=== PATIENT | female | born 1985 | race Caucasian/White ===

== ENCOUNTER 2018-02-28 07:52 | Emergency (ER) | payer SELFPAY ==
[2018-02-28] MEDS ORDERED: Ibuprofen 800 MG TAB ONE (08:38)
== END 2018-02-28 08:44 | disposition home or self-care (01) ==
LOC: ERS 07:52
DX: K04.7 Periapical abscess without sinus (principal); F32.9 Major depressive disorder, single episode, unspecified
CPT/HCPCS: 99282

== ENCOUNTER 2018-11-24 18:40 | Emergency (ER) | payer OTHER, SELFPAY ==
[2018-11-24 19:04] LABS: #Eosinphils 0.1 thou/uL (0.0-0.7); #Lymphocytes 1.8 thou/uL (1.20-3.40); #Monocytes 1.1 thou/uL (0.11-0.59); #Neutrophils 8.6 thou/uL (1.40-6.50); %Basophils 0.3 % (0.0-1.0); %Eosinophils 0.9 % (0.0-10.0); %Lymphocytes 15.7 % (21.0-51.0); %Monocytes 9.3 % (0.0-10.0); %Neutrophils 73.9 % (42.0-75.0); Mean Corpuscular HGB CONC 34.7 g/dL (32.0-36.0); Mean Corpuscular Hemoglobin 32.2 pg (27.0-31.0); Mean Corpuscular Volume 92.8 fL (78.0-98.0); Mean Platelet Volume 8.4 fL (7.4-10.4); Platelet Count 251 thou/uL (130-400); Red Blood Cell (RBC) Count 4.03 mill/uL (4.20-5.40); White Blood Cell (WBC) Count 11.6 thou/uL (4.8-10.8)
[2018-11-24] MEDS ORDERED: Acetaminophen 500 MG TAB ONE (19:07)
[2018-11-24] MEDS ORDERED: Ondansetron PF 4 MG/2 ML Vial ONE (19:07)
[2018-11-24] MEDS ORDERED: cefTRIAXone\\ROCEPHIN 2 GM VIAL ONE (19:07)
[2018-11-24 19:23] LABS: BHCG - Serum Negative (NEGATIVE); Pregs Control Background? CLEAR/WHITE (CLR/WHITE); Pregs Control Bar Appear? YES (CONTROL BAR)
[2018-11-24 19:26] LABS: ALT (SGPT) 77 U/L (8-55); AST (SGOT) 65 U/L (5-34); Albumin 4.2 g/dL (3.5-5.0); Alkaline Phosphatase 117 U/L (40-150); Anion Gap 14 mmol/L (10-20); BUN (Urea Nitrogen) 8 mg/dL (7.0-18.7); Bilirubin, Total 0.4 mg/dL (0.2-1.2); Calc. Creatinine Clearance 0 mL/min (70-130); Calcium 9.5 mg/dL (7.8-10.44); Carbon Dioxide 24 mmol/L (22-29); Chloride 101 mmol/L (98-107); Estimated GFR-MDRD 70; Globulin 2.6 g/dL (2.4-3.5); Glucose 98 mg/dL (70-105); Potassium 3.7 mmol/L (3.5-5.1); Protein, Total 6.8 g/dL (6.0-8.3); Sodium 135 mmol/L (136-145)
--- NOTE | 2018-11-24 19:35 | RAD ---
PORTABLE CHEST 1 VIEW: Date: 11/24/18 Time: 1918 hours HISTORY: Sepsis alert. FINDINGS: The heart size is normal. The lungs are well expanded without focal areas of consolidation, pneumotho rax, or pleural effusions. IMPRESSION: No radiographic evidence of acute cardiopulmonary process. POS: [facility]
[2018-11-24 20:25] LABS: Bilirubin Negative (Negative); Blood, Urine 1+ (Negative); Clarity Turbid (Clear); Glucose, Urine (Dipstick) Normal (Negative); Leukocyte 500 Leu/uL (Negative); Nitrite 1+ (Negative); Protein, Urine (Dipstick) 30 mg/dL (Neg-Trace); Squamous Epithelial 0-3 HPF (0-3); Urobilinogen Normal mg/dL (Less than 2); WBC/HPF Greater than 50 HPF (0-3)
[2018-11-24 20:27] LABS: Bacteria/HPF 2+ HPF (None Seen)
== END 2018-11-24 21:50 | disposition home or self-care (01) ==
LOC: ERS 18:40
DX: N39.0 Urinary tract infection, site not specified (principal); E86.0 Dehydration; F32.9 Major depressive disorder, single episode, unspecified; F17.210 Nicotine dependence, cigarettes, uncomplicated; Z79.899 Other long term (current) drug therapy
CPT/HCPCS: 36415; 51701; 71045; 80053; 81003; 81015; 83605; 84703; 85025; 87040; 87086; 87149; 96361; 96365; 96375; A4353; J0696; J2405

== ENCOUNTER 2020-05-16 04:02 | Emergency (ER) | payer OTHER ==
--- NOTE | 2020-05-17 00:16 | PDOC.HHP ---
Hospitalist HPI History of Present Illness: ADMISSION DATE: 05/16/2020 TIME OF ASSESSMENT: 2300 PRIMARY CARE PHYSICIAN: None CHIEF COMPLAINT: Right lower extremity swelling HPI: This is a 34-year-old woman who presents to the emergency department with complaints of increasing swelling and redness to the right lower extremity. She was diagnosed with right leg cellulitis when she was seen at the [facility] this morning. Woke up with pain due to the swelling early hours this morning at approximately 2 AM. She thought she may have had an insect bite on the right soto and does not recall having a fall or injury to the right leg. She states it has been progressively worsening for the last several days. Denies any fevers, chills, or sweats at home. She has not had any infection like this in the past When she was seen at the [facility] she was given a dose of vancomycin and cefepime. She was advised admission to the hospital for continued antibiotics but the patient refused admission. She received 1 L of normal saline. She was discharged on p.o. antibiotics (clindamycin). She opted to come back because a swelling and pain has become worse as well as the redness which is now extending to her right knee. ROS: The patient reports having intermittent chest pain for the last couple days. She states she feels it in the center of her chest and it radiates to the left shoulder lasting a few minutes at a time. Denies any exacerbation with deep inspiration. Reports having a productive cough but has not paid attention to the color of the sputum. Has not noted any hemoptysis. Denies feeling short of breath. No nausea vomiting or abdominal pain. All other review systems are negative. ED COURSE: Labs done this evening showed a white cell count of 12.5, neutrophils 71.8%, sodium 138, potassium 3.9, BUN 14, creatinine 0.79, GFR 83. Glucose 99. Lactic acid was not done. LFTs normal. test was negative. Allergies/Adverse Reactions: Allergy/AdvReac Type Severity Reaction Status Date / Time No Known Drug Allergies Allergy Unverified 05/16/20 23:06 Past History: PAST MEDICAL HISTORY: 1. History of kidney infection 2. Depression 3. Obesity 4. Bipolar disorder PAST SURGICAL HISTORY: 1. x1 2. Tubal ligation SOCIAL HISTORY: Patient reports smoking 5 cigarettes a day. Denies any alcohol consumption or drug use. States that she has been around someone recently who has use drugs but that she has not. She lives with her and child. FAMILY HISTORY: Noncontributory Hospitalist Exam General Appearance: NAD General - other findings: VS: Temp 98, HR 70, BP 100/54, RR 15, O2 sat 99% on room air. Eye: anicteric sclera Eye - other findings: pin point pupils ENT: normocephalic atraumatic, no oropharyngeal lesions, moist mucosa Neck: supple, no lymphadenopathy Heart: RRR, normal peripheral pulses Respiratory: CTAB, no wheezes, no rales, no ronchi, normal chest expansion Gastrointestinal: soft, non-tender, non-distended, normal bowel sounds Extremities: no cyanosis, no clubbing Extremities - other findings: right lower leg swelling with erythema,anteriorly and right knee erythema Skin: no rashes Skin - other findings: wound to anterior leg, no bleeding/drainage Neurological: cranial nerve grossly intact, normal sensation to touch Musculoskeletal: normal tone, normal strength, no muscle wasting Psychiatric: normal affect, normal behavior, A&O x 3 Hospitalist H&P A/P (1) Cellulitis of right leg Code(s): L03.115 - CELLULITIS OF RIGHT LOWER LIMB Status: Acute (2) Hypotension Status: Acute (3) Chest pain Code(s): R07.9 - CHEST PAIN, UNSPECIFIED Status: Acute (4) Obesity Code(s): E66.9 - OBESITY, UNSPECIFIED Status: Acute Plan: Right leg cellulitis Continue IV antibiotics Xray obtained to rule out osteomyelitis Venous doppler of RLE ordered Wound care consulted Hypotension IV fluids started Monitor BP Chest pain Cardiac monitoring Trend troponins EKG ordered UDS ordered Cough Baseline CXR ordered Admission screening for COVID GI Prophylaxis with Famotidine DVT Prophylaxis with Lovenox CODE STATUS FULL Case discussed with attending who agrees with plan as above.
== END 2020-05-16 04:41 | disposition left against medical advice (07) ==
LOC: ERS 04:02
DX: L03.115 Cellulitis of right lower limb (principal); L03.116 Cellulitis of left lower limb; F17.210 Nicotine dependence, cigarettes, uncomplicated

== ENCOUNTER 2020-05-16 18:40 | Inpatient (IN) | payer OTHER, SELFPAY ==
[2020-05-16 20:13] LABS: #Basophils 0.1 thou/uL (0.0-0.2); #Eosinphils 0.2 thou/uL (0.0-0.7); #Lymphocytes 2.3 thou/uL (1.20-3.40); %Basophils 0.6 % (0.0-1.0); %Eosinophils 1.8 % (0.0-10.0); %Lymphocytes 18.2 % (21.0-51.0); %Monocytes 7.6 % (0.0-10.0); %Neutrophils 71.8 % (42.0-75.0); Hemoglobin 13.1 g/dL (12.0-16.0); Mean Corpuscular HGB CONC 33.4 g/dL (32.0-36.0); Mean Corpuscular Hemoglobin 30.5 pg (27.0-31.0); Mean Corpuscular Volume 91.3 fL (78.0-98.0); Mean Platelet Volume 8.2 fL (7.4-10.4); Platelet Count 384 thou/uL (130-400); RBC Distribution Width 13.2 % (11.5-14.5); Red Blood Cell (RBC) Count 4.31 mill/uL (4.20-5.40); White Blood Cell (WBC) Count 12.5 thou/uL (4.8-10.8)
[2020-05-16 20:45] LABS: ALT (SGPT) 16 U/L (8-55); AST (SGOT) 12 U/L (5-34); Albumin 3.9 g/dL (3.5-5.0); Alkaline Phosphatase 101 U/L (40-110); Anion Gap 12 mmol/L (10-20); BUN (Urea Nitrogen) 14 mg/dL (7.0-18.7); Bilirubin, Total 0.2 mg/dL (0.2-1.2); Calc. Creatinine Clearance 0 mL/min (70-130); Carbon Dioxide 27 mmol/L (22-29); Chloride 103 mmol/L (98-107); Globulin 3.3 g/dL (2.4-3.5); Glucose 99 mg/dL (70-105); Potassium 3.9 mmol/L (3.5-5.1); Protein, Total 7.2 g/dL (6.0-8.3); Sodium 138 mmol/L (136-145)
[2020-05-16 20:52] LABS: BHCG - Serum Negative (NEGATIVE); Pregs Control Background? CLEAR/WHITE (CLR/WHITE); Pregs Control Bar Appear? YES (CONTROL BAR)
[2020-05-16] MEDS ORDERED: Cefepime 2 GM VIAL ONE (21:58)
[2020-05-16] MEDS ORDERED: VANCOMYCIN 2 GRAM/400 ML BAG 2 GM in Premix Bag 1 BAG IVPB SCH (23:15)
[2020-05-17 00:33] LABS: Lactic Acid 1.5 mmol/L (0.5-2.2)
[2020-05-17 00:35] LABS: CRP (Inflammatory) 6.15 mg/dL (= or < 0.5); Magnesium 2.1 mg/dL (1.6-2.6)
[2020-05-17] MEDS ORDERED: Acetaminophen 325 MG TAB PO PRN (00:49)
[2020-05-17] MEDS ORDERED: Acetaminophen 650 MG Suppository PR PRN (00:49)
[2020-05-17] MEDS ORDERED: Enoxaparin Sodium 40 MG/0.4 ML SYRINGE SC SCH (01:00)
[2020-05-17] MEDS: Sodium Chloride 0.9% 1,000 ML IV SCH ×4 (03:12→20:43)
[2020-05-17] MEDS ORDERED: Enoxaparin Sodium 40 MG/0.4 ML SYRINGE ONE (03:14)
[2020-05-17 03:24] LABS: #Eosinphils 0.3 thou/uL (0.0-0.7); #Lymphocytes 2.7 thou/uL (1.20-3.40); #Monocytes 0.9 thou/uL (0.11-0.59); %Basophils 0.1 % (0.0-1.0); %Eosinophils 2.7 % (0.0-10.0); %Lymphocytes 22.5 % (21.0-51.0); %Monocytes 7.4 % (0.0-10.0); %Neutrophils 67.3 % (42.0-75.0); Hemoglobin 12.5 g/dL (12.0-16.0); Mean Corpuscular HGB CONC 33.4 g/dL (32.0-36.0); Mean Corpuscular Hemoglobin 30.7 pg (27.0-31.0); Mean Corpuscular Volume 92.1 fL (78.0-98.0); Mean Platelet Volume 8.6 fL (7.4-10.4); Platelet Count 326 thou/uL (130-400); RBC Distribution Width 13.3 % (11.5-14.5); Red Blood Cell (RBC) Count 4.06 mill/uL (4.20-5.40); White Blood Cell (WBC) Count 11.8 thou/uL (4.8-10.8)
[2020-05-17 03:42] LABS: Anion Gap 12 mmol/L (10-20); BUN (Urea Nitrogen) 12 mg/dL (7.0-18.7); Calc. Creatinine Clearance 0 mL/min (70-130); Calcium 8.1 mg/dL (7.8-10.44); Carbon Dioxide 23 mmol/L (22-29); Chloride 106 mmol/L (98-107); Glucose 99 mg/dL (70-105); Sodium 137 mmol/L (136-145)
--- NOTE | 2020-05-17 07:52 | RAD ---
EXAM: 4 views of the right knee HISTORY: Right knee swelling after bug bite COMPARISON: None FINDINGS: No knee effusion is seen. There is no evidence of acute fracture or dislocation. No signifi cant degenerative changes are seen. Mild diffuse soft tissue swelling is present. IMPRESSION: No evidence of acute osseous abnormality.
--- NOTE | 2020-05-17 07:54 | ULT ---
EXAM: Right lower extremity venous ultrasound HISTORY: Right lower extremity pain, redness, and edema COMPARISON: None TECHNIQUE: Multiplanar grayscale and color Doppler images were obtained in a right lower extremity ve nous ultrasound. Spectral analysis of the Doppler waveforms were performed. FINDINGS: The common femoral vein, profunda femoral vein, superficial femoral vein, and popliteal vei n are normal in appearance without visible thrombus. These vessels demonstrate normal compression, flow, and augmentation. The posterior tibial vein and greater saphenous vein are patent without evidence of thrombus. IMPRESSION: No evidence of DVT.
--- NOTE | 2020-05-17 07:57 | RAD ---
EXAM: 2 views of the right tibia/fibula HISTORY: Leg swelling after a bug bite COMPARISON: None FINDINGS: There is no evidence of acute fracture or dislocation. Mild diffuse soft tissue swelling is seen. No degenerative changes are seen in the knee or ankle. IMPRESSION: No evidence of acute osseous abnormality.
[2020-05-17] MEDS ORDERED: Vancomycin 1.5 GRAM/300 ML BAG 1.5 GM in Premix Bag 1 BAG IVPB SCH (08:00)
--- NOTE | 2020-05-17 08:03 | RAD ---
EXAM: Chest 2 views: HISTORY: Right leg redness and infection COMPARISON: 11/24/2018 FINDINGS: There is a normal-sized cardiomediastinal silhouette. There is no evidence of consolidation, mass, or pleural effusion. No acute osseous abnormality. IMPRESSION: No evidence of acute cardiopulmonary disease
[2020-05-17 08:35] LABS: SARS-CoV-2 PCR by NAA Not Detected (NotDetected)
[2020-05-17] MEDS ORDERED: Cefepime 2 GM in Sodium Chloride 0.9% 100 ML IVPB SCH (10:00)
--- NOTE | 2020-05-17 10:08 | PDOC.HOSPP ---
- Subjective Encounter Date: 05/17/20 Subjective: Feels better today compared to yesterday, she did note that the redness of her right lower extremity is better, and it is not spreading. - Objective Vital Signs & Weight: Vital Signs (12 hours) Temp Pulse Resp BP Pulse Ox 05/17/20 08:48 98.1 F 63 16 116/65 99 Result Diagrams: 05/17/20 02:59 05/17/20 02:59 Hospitalist ROS - Medication Medications: Active Medications Generic Name Dose Route Start Last Admin Trade Name Freq PRN Reason Stop Dose Admin Sodium Chloride 1,000 mls @ 100 mls/hr 05/17/20 01:00 05/17/20 03:12 Normal Saline 0.9% IV 1,000 mls .Q10H NAEL Administration Hospitalist Exam Vitals: Vital Signs (12 hours) Temp Pulse Resp BP Pulse Ox 05/17/20 08:48 98.1 F 63 16 116/65 99 General Appearance: NAD Eye: PERRL, anicteric sclera ENT: normocephalic atraumatic, no oropharyngeal lesions Neck: supple, symmetric, no JVD Heart: RRR, no murmur, no gallops, no rubs Respiratory: CTAB, no wheezes, no rales, no ronchi Gastrointestinal: soft, non-tender, non-distended Skin: normal turgor (Patient does have slight redness of the right lower extremity within the demarcation drawn by the nurse, and it is receding, in the center of the soto area there is a round ulceration, below that there are 2 bumps.) Neurological: cranial nerve grossly intact Musculoskeletal: normal tone Psychiatric: normal affect Hosp A/P (1) Erythema nodosum Code(s): L52 - ERYTHEMA NODOSUM Status: Acute (2) Cellulitis of right leg Code(s): L03.115 - CELLULITIS OF RIGHT LOWER LIMB Status: Acute (3) Hypotension Status: Chronic (4) Obesity Code(s): E66.9 - OBESITY, UNSPECIFIED Status: Chronic - Plan Is a 34-year-old female patient who noticed swelling and redness of her right lower extremity, he also has a round central ulceration in the soto area, he does not recall being bit by an insect or having any trauma to that area, she is known to have history of erythema nodosum when she was a teenager. ID---patient redness and swelling appears to be much better today compared to , I believe that she has recurrence of her erythema nodosum with superimposed cellulitis, I will change her antibiotics to IV Unasyn, and start her on a dose of prednisone. In regards of her low blood pressure, it seems that she does have a baseline low blood pressure, I will continue with hydrating her with IV fluids, she does not need to be on telemetry as she is stable, [facility] Patient will be on heparin for DVT prophylaxis as she does have history of DVT in the past.
[2020-05-17] MEDS ORDERED: predniSONE 20 MG TAB ONE (10:51)
[2020-05-17] MEDS ORDERED: Famotidine 20 MG TAB ONE (10:51)
[2020-05-17] MEDS: Famotidine 20 MG TAB PO SCH ×2 (10:57→20:43)
[2020-05-17] MEDS: predniSONE 20 MG TAB PO SCH (10:58)
[2020-05-17 11:01] VITALS: BMI 42.1
[2020-05-17] MEDS: Ampicillin/Sulbactam 3 GM in Sodium Chloride 0.9% 100 ML IVPB SCH ×2 (11:27→17:23)
[2020-05-17 15:50] LABS: Medtox Reader # READER 1
[2020-05-17 15:51] LABS: Amphetamine Detected (NotDetected); Barbiturates Screen Not Detected (NotDetected); Benzodiazepine Screen Not Detected (NotDetected); Cocaine Metabolite Screen Not Detected (NotDetected); Medtox Control Line Valid? VALID (VALID); Methadone Not Detected (NotDetected); Methamphetamine Detected (NotDetected); Opiate Screen Not Detected (NotDetected); Oxycodone Screen Not Detected (NotDetected); Phencyclidine (PCP) Not Detected (NotDetected); THC/Cannabinoid Screen Not Detected (NotDetected); Tricyclic Screen Not Detected (NotDetected)
[2020-05-17] MEDS ORDERED: Sodium Chloride 0.9% 1,000 ML IV SCH (19:00)
[2020-05-17] MEDS: Enoxaparin Sodium 40 MG/0.4 ML SYRINGE SC SCH (20:44)
[2020-05-18] MEDS: Ampicillin/Sulbactam 3 GM in Sodium Chloride 0.9% 100 ML IVPB SCH ×3 (00:23→12:50)
[2020-05-18 05:55] LABS: #Basophils 0.1 thou/uL (0.0-0.2); #Eosinphils 0.2 thou/uL (0.0-0.7); #Monocytes 0.5 thou/uL (0.11-0.59); #Neutrophils 7.7 thou/uL (1.40-6.50); %Basophils 0.5 % (0.0-1.0); %Eosinophils 1.3 % (0.0-10.0); %Lymphocytes 26.1 % (21.0-51.0); %Monocytes 4.7 % (0.0-10.0); %Neutrophils 67.4 % (42.0-75.0); Mean Corpuscular HGB CONC 32.2 g/dL (32.0-36.0); Mean Corpuscular Hemoglobin 29.6 pg (27.0-31.0); Mean Corpuscular Volume 91.8 fL (78.0-98.0); Mean Platelet Volume 8.5 fL (7.4-10.4); Platelet Count 334 thou/uL (130-400); RBC Distribution Width 13.1 % (11.5-14.5); Red Blood Cell (RBC) Count 4.05 mill/uL (4.20-5.40); White Blood Cell (WBC) Count 11.4 thou/uL (4.8-10.8)
[2020-05-18 06:12] LABS: Anion Gap 12 mmol/L (10-20); BUN (Urea Nitrogen) 5 mg/dL (7.0-18.7); Calc. Creatinine Clearance 218 mL/min (70-130); Calcium 8.2 mg/dL (7.8-10.44); Carbon Dioxide 22 mmol/L (22-29); Chloride 108 mmol/L (98-107); Glucose 90 mg/dL (70-105); Sodium 138 mmol/L (136-145)
[2020-05-18] MEDS: Famotidine 20 MG TAB PO SCH ×2 (08:52→21:39)
[2020-05-18] MEDS: predniSONE 20 MG TAB PO SCH (11:15)
[2020-05-18] MEDS ORDERED: FLU VACC QS2020-21(6MOS UP)/PF 60 MCG/0.5 ML SYRINGE IM ONE (11:30)
[2020-05-18] MEDS ORDERED: Vancomycin HCl 1.75 GM in Sodium Chloride 0.9% 250 ML 300 ML IVPB SCH ×2 (12:12→21:00)
--- NOTE | 2020-05-18 12:16 | PDOC.HOSPP ---
- Subjective Encounter Date: 05/18/20 Subjective: Reports feeling well - Objective Vital Signs & Weight: Vital Signs (12 hours) Temp Pulse Resp BP BP Pulse Ox 05/18/20 11:55 97.8 F 58 L 16 119/64 98 05/18/20 08:00 97.9 F 55 L 14 137/75 98 05/18/20 04:00 97.7 F 60 18 114/65 97 Weight Admit Weight 268 lb 15.423 oz Weight 268 lb 15.423 oz I&O: 05/17/20 05/18/20 05/19/20 06:59 06:59 06:59 Intake Total 3800 Output Total 1800 Balance 1999 Result Diagrams: 05/18/20 05:32 05/18/20 05:32 Hospitalist ROS - Medication Medications: Active Medications Generic Name Dose Route Start Last Admin Trade Name Freq PRN Reason Stop Dose Admin Enoxaparin Sodium 40 mg 05/17/20 21:00 05/17/20 20:44 Enoxaparin Sodium 40 Mg/0.4 Ml Syringe SC 40 mg 2100 NAEL Administration Famotidine 20 mg 05/17/20 09:00 05/18/20 08:52 Famotidine 20 Mg Tab PO 20 mg BID NAEL Administration Sodium Chloride 1,000 mls @ 100 mls/hr 05/17/20 01:00 05/17/20 20:43 Normal Saline 0.9% IV 1,000 mls .Q10H NAEL Administration Prednisone 20 mg 05/17/20 11:00 05/18/20 11:15 Prednisone 20 Mg Tab PO 20 mg Q24H NAEL Administration Sodium Chloride 10 ml 05/17/20 21:00 05/18/20 08:53 Flush - Normal Saline 10 Ml Syringe IVF 10 ml Q12HR NAEL Administration Hospitalist Exam Vitals: Vital Signs (12 hours) Temp Pulse Resp BP BP Pulse Ox 05/18/20 11:55 97.8 F 58 L 16 119/64 98 05/18/20 08:00 97.9 F 55 L 14 137/75 98 05/18/20 04:00 97.7 F 60 18 114/65 97 Weight Admit Weight 268 lb 15.423 oz Weight 268 lb 15.423 oz General Appearance: NAD Eye: PERRL, anicteric sclera ENT: normocephalic atraumatic Neck: supple, symmetric, no JVD Heart: RRR, no murmur, no gallops Respiratory: CTAB, no wheezes, no rales Gastrointestinal: soft, non-tender, non-distended Extremities: 1+ LE edema (Her right lower extremity edema looks slightly better/same as yesterday, it is still warm to touch.) Hosp A/P (1) Erythema nodosum Code(s): L52 - ERYTHEMA NODOSUM Status: Acute (2) Cellulitis of right leg Code(s): L03.115 - CELLULITIS OF RIGHT LOWER LIMB Status: Acute (3) Hypotension Status: Chronic (4) Obesity Code(s): E66.9 - OBESITY, UNSPECIFIED Status: Chronic - Plan Is a 34-year-old female patient who noticed swelling and redness of her right lower extremity, he also has a round central ulceration in the soto area, he does not recall being bit by an insect or having any trauma to that area, she is known to have history of erythema nodosum when she was a teenager. ID---patient redness and swelling appears to be much better today compared to yesterday, I believe that she has recurrence of her erythema nodosum with superimposed cellulitis, I will change her antibiotics to IV Unasyn, and start her on a dose of prednisone. In regards of her low blood pressure, it seems that she does have a baseline low blood pressure, I will continue with hydrating her with IV fluids, she does not need to be on telemetry as she is stable, will downgrade her to MedSurg. Patient will be on heparin for DVT prophylaxis as she does have history of DVT in the past. Plan for today 05/18 Patient's blood pressure stabilized with IV fluids we will continue with that. Her leg looks about the same as yesterday out we will switch her back to cefepime and Vanco regimen, we will ask the wound care team to see since she does have a somewhat of a deep ulceration around the chin area, the other nodules that were felt below that ulceration are improved, you with p.o. prednisone. We will also obtain culture from that wound.
[2020-05-18] MEDS: VANCOMYCIN 2 GRAM/400 ML BAG 2 GM in Premix Bag 1 BAG IVPB SCH ×2 (14:13→22:28)
[2020-05-18] MEDS: Sodium Chloride 0.9% 1,000 ML IV SCH (18:06)
[2020-05-18] MEDS: Enoxaparin Sodium 40 MG/0.4 ML SYRINGE SC SCH (21:38)
[2020-05-18] MEDS: Cefepime 2 GM in Sodium Chloride 0.9% 100 ML IVPB SCH (21:42)
[2020-05-19 04:33] LABS: #Eosinphils 0.1 thou/uL (0.0-0.7); #Lymphocytes 2.8 thou/uL (1.20-3.40); #Monocytes 0.6 thou/uL (0.11-0.59); #Neutrophils 8.7 thou/uL (1.40-6.50); %Basophils 0.4 % (0.0-1.0); %Eosinophils 0.7 % (0.0-10.0); %Lymphocytes 23.1 % (21.0-51.0); %Monocytes 4.8 % (0.0-10.0); Hemoglobin 12.3 g/dL (12.0-16.0); Mean Corpuscular HGB CONC 33.2 g/dL (32.0-36.0); Mean Corpuscular Hemoglobin 30.5 pg (27.0-31.0); Mean Corpuscular Volume 91.9 fL (78.0-98.0); Mean Platelet Volume 8.7 fL (7.4-10.4); Platelet Count 375 thou/uL (130-400); RBC Distribution Width 13.1 % (11.5-14.5); Red Blood Cell (RBC) Count 4.03 mill/uL (4.20-5.40); White Blood Cell (WBC) Count 12.2 thou/uL (4.8-10.8)
[2020-05-19 04:52] LABS: Anion Gap 11 mmol/L (10-20); BUN (Urea Nitrogen) 8 mg/dL (7.0-18.7); Calc. Creatinine Clearance 209 mL/min (70-130); Calcium 8.2 mg/dL (7.8-10.44); Carbon Dioxide 26 mmol/L (22-29); Chloride 106 mmol/L (98-107); Glucose 104 mg/dL (70-105); Potassium 3.7 mmol/L (3.5-5.1); Sodium 139 mmol/L (136-145)
[2020-05-19] MEDS: VANCOMYCIN 2 GRAM/400 ML BAG 2 GM in Premix Bag 1 BAG IVPB SCH ×2 (05:09→14:51)
[2020-05-19] MEDS ORDERED: Cepastat Lozenges 1 LOZ PO PRN (07:38)
[2020-05-19] MEDS ORDERED: Loratadine 10 MG TAB PO PRN (07:38)
[2020-05-19] MEDS ORDERED: Calcium Carbonate 500 MG ChewTAB PO PRN (07:38)
[2020-05-19] MEDS ORDERED: hydrALAZINE 20 MG/ML VIAL SLOW IVP PRN (07:38)
[2020-05-19] MEDS ORDERED: Loperamide HCl 2 MG CAP PO PRN (07:38)
[2020-05-19] MEDS ORDERED: Ondansetron ODT 4 MG TAB SL PRN (07:38)
[2020-05-19] MEDS ORDERED: Zolpidem Tartrate 5 MG TAB PO PRN (07:38)
[2020-05-19] MEDS ORDERED: Bisacodyl 5 MG TAB PO PRN (07:38)
[2020-05-19] MEDS ORDERED: Sodium Chloride 0.65% Nasal 44 ML BOT EA NARE PRN (07:38)
[2020-05-19] MEDS ORDERED: Senokot S 8.6-50 MG TAB PO PRN (07:38)
[2020-05-19] MEDS ORDERED: Ondansetron PF 4 MG/2 ML Vial IVP PRN (07:38)
[2020-05-19] MEDS ORDERED: GUAIFENESIN SF SOLN 200 MG/10 ML UDCUP PO PRN (07:38)
[2020-05-19] MEDS ORDERED: HYDROcodone/Acetaminophen 5/325 mg Tablet PO PRN (07:38)
[2020-05-19] MEDS ORDERED: Benzonatate 100 MG CAP PO PRN (07:38)
[2020-05-19] MEDS: Cefepime 2 GM in Sodium Chloride 0.9% 100 ML IVPB SCH ×2 (08:36→20:58)
[2020-05-19] MEDS: Famotidine 20 MG TAB PO SCH ×2 (08:36→20:59)
[2020-05-19] MEDS: Sodium Chloride 0.9% 1,000 ML IV SCH (08:38)
[2020-05-19] MEDS: predniSONE 20 MG TAB PO SCH (10:57)
--- NOTE | 2020-05-19 11:49 | PDOC.HOSPP ---
- Subjective Encounter Date: 05/19/20 Encounter Time: 07:10 Subjective: Patient seen and examined bedside today, no overnight event, patient is doing much better today, she has no significant amount of pain, she is able to walk to the bathroom by herself, swelling and erythema reducing, no fever - Objective Vital Signs & Weight: Vital Signs (12 hours) Temp Pulse Resp BP Pulse Ox 05/19/20 08:00 98.7 F 66 14 127/60 98 Weight Admit Weight 268 lb 15.423 oz Weight 268 lb 15.423 oz I&O: 05/18/20 05/19/20 05/20/20 06:59 06:59 06:59 Intake Total 3800 4520 Output Total 1800 Balance 1999 4520 Result Diagrams: 05/19/20 04:07 05/19/20 04:07 Hospitalist ROS - Review of Systems ENT: denies: ear pain, ear discharge, nose pain, nose discharge, nose congestion, mouth pain, mouth swelling, throat pain, throat swelling, other Respiratory: denies: cough, dry, shortness of breath, hemoptysis, SOB with excertion, pleuritic pain, sputum, wheezing, other Cardiovascular: denies: chest pain, palpitations, orthopnea, paroxysmal noc. dyspnea, edema, light headedness, other Gastrointestinal: denies: nausea, vomiting, abdominal pain, diarrhea, constipation, melena, hematochezia, other Genitourinary: denies: dysuria, frequency, incontinence, hematuria, retention, other Musculoskeletal: denies: neck pain, shoulder pain, arm pain, back pain, hand pain, leg pain, foot pain, other - Medication Medications: Active Medications Generic Name Dose Route Start Last Admin Trade Name Freq PRN Reason Stop Dose Admin Enoxaparin Sodium 40 mg 05/17/20 21:00 05/18/20 21:38 Enoxaparin Sodium 40 Mg/0.4 Ml Syringe SC 40 mg 2100 NAEL Administration Famotidine 20 mg 05/17/20 09:00 05/19/20 08:36 Famotidine 20 Mg Tab PO 20 mg BID NAEL Administration Sodium Chloride 1,000 mls @ 100 mls/hr 05/17/20 01:00 05/19/20 08:38 Normal Saline 0.9% IV 1,000 mls .Q10H NAEL Administration Cefepime HCl 2 gm/ Sodium 100 mls @ 200 mls/hr 05/18/20 21:00 05/19/20 08:36 Chloride IVPB 100 mls Q12HR NAEL Administration Vancomycin HCl 2 gm/ Device 400 mls @ 200 mls/hr 05/18/20 14:00 05/19/20 05:09 IVPB 400 mls Q8HR NAEL Administration Prednisone 20 mg 05/17/20 11:00 05/19/20 10:57 Prednisone 20 Mg Tab PO 20 mg Q24H NAEL Administration Sodium Chloride 10 ml 05/17/20 21:00 05/19/20 08:41 Flush - Normal Saline 10 Ml Syringe IVF Not Given Q12HR NAEL Hospitalist Exam Vitals: Vital Signs (12 hours) Temp Pulse Resp BP Pulse Ox 05/19/20 08:00 98.7 F 66 14 127/60 98 Weight Admit Weight 268 lb 15.423 oz Weight 268 lb 15.423 oz General Appearance: NAD, awake alert Eye: PERRL, anicteric sclera ENT: normocephalic atraumatic, no oropharyngeal lesions Neck: supple, symmetric, no JVD, no thyromegaly Heart: RRR, no murmur, no gallops, no rubs Respiratory: no wheezes, no rales, no ronchi Gastrointestinal: soft, non-tender, non-distended, normal bowel sounds Extremities: no cyanosis, no clubbing, no edema Extremities - other findings: Right lower extremity cellulitis and erythema reducing, wound covered with Skin: normal turgor, no lesions Neurological: no focal deficits Musculoskeletal: normal tone, normal strength Psychiatric: normal affect, normal behavior Hosp A/P (1) Cellulitis of right leg Code(s): L03.115 - CELLULITIS OF RIGHT LOWER LIMB Status: Acute Plan: Cellulitis improving, patient is on Unasyn and vancomycin, (2) Erythema nodosum Code(s): L52 - ERYTHEMA NODOSUM Status: Chronic (3) Hypotension Status: Resolved (4) Obesity Code(s): E66.9 - OBESITY, UNSPECIFIED Status: Chronic Qualifiers: Obesity type: due to excess calories Body mass index: BMI 40.0-44.9 (5) Chest pain Code(s): R07.9 - CHEST PAIN, UNSPECIFIED Status: Resolved Plan: Cardiac etiology has been ruled out, D-dimer negative, (6) Amphetamine abuse 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
[2020-05-19 13:52] LABS: Vancomycin, Trough 22.4 ug/mL
[2020-05-19] MEDS: VANCOMYCIN 1.75 GM/350 ML BAG 1.75 GM in Premix Bag 1 BAG IVPB SCH ×2 (16:33→23:57)
[2020-05-19] MEDS: Enoxaparin Sodium 40 MG/0.4 ML SYRINGE SC SCH (20:59)
[2020-05-20 05:47] LABS: #Basophils 0.1 thou/uL (0.0-0.2); #Eosinphils 0.2 thou/uL (0.0-0.7); #Lymphocytes 3.2 thou/uL (1.20-3.40); #Monocytes 0.6 thou/uL (0.11-0.59); %Basophils 0.4 % (0.0-1.0); %Eosinophils 1.3 % (0.0-10.0); %Lymphocytes 26.5 % (21.0-51.0); %Monocytes 4.6 % (0.0-10.0); %Neutrophils 67.1 % (42.0-75.0); Hemoglobin 12.9 g/dL (12.0-16.0); Mean Corpuscular HGB CONC 33.8 g/dL (32.0-36.0); Mean Corpuscular Hemoglobin 30.9 pg (27.0-31.0); Mean Corpuscular Volume 91.2 fL (78.0-98.0); Mean Platelet Volume 8.5 fL (7.4-10.4); Platelet Count 368 thou/uL (130-400); RBC Distribution Width 13.4 % (11.5-14.5); Red Blood Cell (RBC) Count 4.17 mill/uL (4.20-5.40); White Blood Cell (WBC) Count 11.9 thou/uL (4.8-10.8)
[2020-05-20 06:12] LABS: Anion Gap 14 mmol/L (10-20); BUN (Urea Nitrogen) 7 mg/dL (7.0-18.7); CRP (Inflammatory) 0.76 mg/dL (= or < 0.5); Calc. Creatinine Clearance 221 mL/min (70-130); Calcium 8.7 mg/dL (7.8-10.44); Carbon Dioxide 25 mmol/L (22-29); Chloride 104 mmol/L (98-107); Glucose 94 mg/dL (70-105); Potassium 3.5 mmol/L (3.5-5.1); Sodium 139 mmol/L (136-145)
[2020-05-20] MEDS: VANCOMYCIN 1.75 GM/350 ML BAG 1.75 GM in Premix Bag 1 BAG IVPB SCH (08:15)
[2020-05-20] MEDS: Famotidine 20 MG TAB PO SCH (08:15)
[2020-05-20 09:02] VITALS: BP 110/64; TEMP 98.3
[2020-05-20] MEDS: Cefepime 2 GM in Sodium Chloride 0.9% 100 ML IVPB SCH (11:36)
--- NOTE | 2020-05-20 11:48 | PDOC.DS.DS ---
Provider Date of Admission: 05/16/20 23:49 Date of Discharge: 05/20/20 Admitting Provider: Jeffry Pollock MD Primary Care Physician: Jamila Freire MD Course Hospital Course: 34-year-old female who came to emergency room with complaint of right lower extremity swelling, patient also has erythema nodosum, patient was also found with a cellulitis, on admission she was hemodynamically stable, she failed outpatient therapy so we admitted this patient in hospital, while in hospital she was given vancomycin and cefepime, for erythema nodosum we treated her with prednisone with a significant improvement, while in hospital she remained hemodynamic stable, on discharge be changed to cephalexin and doxycycline as well as IV heparin system for another 5 days, patient will follow up with primary care physician. Patient seen and examined bedside today patient is medically stable for discharge, all new medication prescription sent to her pharmacy. Resuscitation Status: 05/17/20 00:49 Resuscitation Status Routine Co-Sign Provider: Resuscitation Status: FULL: Full Resuscitation Lab Results: 05/20/20 05:27 05/20/20 05:27 Abnormal Lab Results - Last 48 hrs 05/19/20 04:07: WBC 12.2 H, RBC 4.03 L, Neutrophils # 8.7 H, Monocytes # 0.6 H 05/20/20 05:27: C-Reactive Protein 0.76 H 05/20/20 05:27: WBC 11.9 H, RBC 4.17 L, Neutrophils # 8.0 H, Monocytes # 0.6 H Microbiology - Entire Visit 05/18/20 13:05 Leg - Abscess Bacterial Culture - Preliminary Vitals: Vital Signs (12 hours) Temp Pulse Resp BP Pulse Ox 05/20/20 08:00 98.3 F 67 18 110/64 97 Weight Admit Weight 268 lb 15.423 oz Weight 268 lb 15.423 oz Physical Exam: The patient was seen and examined on the day of discharge. General Appearance: NAD, awake alert Eye: PERRL, anicteric sclera ENT: normocephalic atraumatic, no oropharyngeal lesions Neck: supple, symmetric, no JVD, no thyromegaly Respiratory: CTAB, no wheezes, no rales, no ronchi Cardiovascular: RRR, no murmur, no gallops, no rubs Gastrointestinal: soft, non-tender, non-distended, normal bowel sounds Extremities: no cyanosis, no clubbing, no edema Extremities - other findings: Right lower extremity cellulitis significantly improved, Skin: normal turgor, no lesions Neurological: no focal deficits Musculoskeletal: normal tone, normal strength PSYCH: normal affect, normal behavior Problem (1) Cellulitis of right leg Code(s): L03.115 - CELLULITIS OF RIGHT LOWER LIMB Status: Acute (2) Erythema nodosum Code(s): L52 - ERYTHEMA NODOSUM Status: Chronic (3) Hypotension Status: Resolved (4) Obesity Code(s): E66.9 - OBESITY, UNSPECIFIED Status: Chronic Qualifiers: Obesity type: due to excess calories Body mass index: BMI 40.0-44.9 (5) Chest pain Code(s): R07.9 - CHEST PAIN, UNSPECIFIED Status: Resolved (6) Amphetamine abuse Code(s): F15.10 - OTHER STIMULANT ABUSE, UNCOMPLICATED Status: Acute Plan Prescriptions: Cephalexin 500 mg PO Q6HR #30 capsule Doxycycline Monohydrate 100 mg PO BID #14 tablet predniSONE 20 mg PO DAILY #5 tab Home Medications: Medication Instructions Recorded Confirmed Type Cephalexin 500 mg PO Q6HR #30 capsule 05/20/20 Rx Doxycycline Monohydrate 100 mg PO BID #14 tablet 05/20/20 Rx predniSONE 20 mg PO DAILY #5 tab 05/20/20 Rx Allergies: No Known Drug Allergies Allergy (Verified 05/17/20 12:59) PER ER NOTES Discharge Instructions:: Notify MD or return to ER for any of the following symptoms; fever, chills, shortness of breath, chest pain, uncontrolled pain, abnormal drainage/odor of wound, and increased swelling/redness of wound. Clean wound per wound care teams recommendations. Activity:: Activity as Tolerated Nourishment:: Heart Healthy Diet Therapies:: Not Applicable Equipment/Supplies:: Not Applicable IV Therapy:: Not Applicable Referrals: Jamila Freire MD [Primary Care Provider] - 14 Days (Call office to schedule follow-up appointment) Disposition: HOME Quality CORE MEASURES:: N/A
[2020-05-20] MEDS: predniSONE 20 MG TAB PO SCH (12:15)
--- NOTE | 2020-05-21 14:39 | PDOC.HHP ---
Hospitalist HPI History of Present Illness: ADMISSION DATE: 05/16/2020 TIME OF ASSESSMENT: 2300 PRIMARY CARE PHYSICIAN: None CHIEF COMPLAINT: Right lower extremity swelling HPI: This is a 34-year-old woman who presents to the emergency department with complaints of increasing swelling and redness to the right lower extremity. She was diagnosed with right leg cellulitis when she was seen at the [facility] this morning. Woke up with pain due to the swelling early hours this morning at approximately 2 AM. She thought she may have had an insect bite on the right soto and does not recall having a fall or injury to the right leg. She states it has been progressively worsening for the last several days. Denies any fevers, chills, or sweats at home. She has not had any infection like this in the past When she was seen at the [facility] she was given a dose of vancomycin and cefepime. She was advised admission to the hospital for continued antibiotics but the patient refused admission. She received 1 L of normal saline. She was discharged on p.o. antibiotics (clindamycin). She opted to come back because a swelling and pain has become worse as well as the redness which is now extending to her right knee. ROS: The patient reports having intermittent chest pain for the last couple days. She states she feels it in the center of her chest and it radiates to the left shoulder lasting a few minutes at a time. Denies any exacerbation with deep inspiration. Reports having a productive cough but has not paid attention to the color of the sputum. Has not noted any hemoptysis. Denies feeling short of breath. No nausea vomiting or abdominal pain. All other review systems are negative. ED COURSE: Labs done this evening showed a white cell count of 12.5, neutrophils 71.8%, sodium 138, potassium 3.9, BUN 14, creatinine 0.79, GFR 83. Glucose 99. Lactic acid was not done. LFTs normal. test was negative. Allergies/Adverse Reactions: Allergy/AdvReac Type Severity Reaction Status Date / Time No Known Drug Allergies Allergy Verified 05/17/20 12:59 Home Medications: Medication Instructions Recorded Confirmed Type Cephalexin 500 mg PO Q6HR #30 capsule 05/20/20 Rx Doxycycline Monohydrate 100 mg PO BID #14 tablet 05/20/20 Rx predniSONE 20 mg PO DAILY #5 tab 02/11/21 Rx Past History: PAST MEDICAL HISTORY: 1. History of kidney infection 2. Depression 3. Obesity 4. Bipolar disorder PAST SURGICAL HISTORY: 1. x1 2. Tubal ligation SOCIAL HISTORY: Patient reports smoking 5 cigarettes a day. Denies any alcohol consumption or drug use. States that she has been around someone recently who has use drugs but that she has not. She lives with her and child. FAMILY HISTORY: Noncontributory Hospitalist Exam General Appearance: NAD General - other findings: VS: Temp 98, HR 70, BP 100/54, RR 15, O2 sat 99% on room air. Eye: anicteric sclera Eye - other findings: pin point pupils ENT: normocephalic atraumatic, no oropharyngeal lesions, moist mucosa Neck: supple, no lymphadenopathy Heart: RRR, normal peripheral pulses Respiratory: CTAB, no wheezes, no rales, no ronchi, normal chest expansion Gastrointestinal: soft, non-tender, non-distended, normal bowel sounds Extremities: no cyanosis, no clubbing Extremities - other findings: right lower leg swelling with erythema,anteriorly and right knee erythema Skin: no rashes Skin - other findings: wound to anterior leg, no bleeding/drainage Neurological: cranial nerve grossly intact, normal sensation to touch Musculoskeletal: normal tone, normal strength, no muscle wasting Psychiatric: normal affect, normal behavior, A&O x 3 Hospitalist Results Result Diagrams: 05/20/20 05:27 05/20/20 05:27 Hospitalist H&P A/P (1) Cellulitis of right leg Code(s): L03.115 - CELLULITIS OF RIGHT LOWER LIMB Status: Acute (2) Chest pain Code(s): R07.9 - CHEST PAIN, UNSPECIFIED Status: Resolved (3) Obesity Code(s): E66.9 - OBESITY, UNSPECIFIED Status: Chronic (4) Hypotension Status: Resolved Plan: Right leg cellulitis Continue IV antibiotics Xray obtained to rule out osteomyelitis Venous doppler of RLE ordered Wound care consulted Hypotension IV fluids started Monitor BP Chest pain Cardiac monitoring Trend troponins EKG ordered UDS ordered Cough Baseline CXR ordered Admission screening for COVID GI Prophylaxis with Famotidine DVT Prophylaxis with Lovenox CODE STATUS FULL Case discussed with attending who agrees with plan as above.
== END 2020-05-20 12:35 | disposition home or self-care (01) | DRG 603 ==
LOC: ERS 18:40 → ERHOLD 23:49 → ONC 05-17 11:32
PROVIDERS: ADMIT Internal Medicine; ATTEND Internal Medicine
DX: L03.115 Cellulitis of right lower limb (principal); Z68.41 Body mass index [BMI] 40.0-44.9, adult; Z20.822 Contact with and (suspected) exposure to COVID-19; L52 Erythema nodosum; I95.9 Hypotension, unspecified; E66.9 Obesity, unspecified; R07.9 Chest pain, unspecified; F15.10 Other stimulant abuse, uncomplicated; F31.9 Bipolar disorder, unspecified; F17.210 Nicotine dependence, cigarettes, uncomplicated; Z28.21 Immunization not carried out because of patient refusal; Z98.51 Tubal ligation status
CPT/HCPCS: 36415; 71046; 80048; 80053; 80202; 80306; 83605; 83735; 83880; 84484; 84703; 85025; 85379; 86140; 87070; 87077; 87186; 87205; 87635; 93005; 94760; 96365; 96366; 96367; J0295; J0692; J1650; J3370; J3490; J7512; U0003; U0005

== ENCOUNTER 2023-02-14 17:48 | Emergency (ER) | payer SELFPAY | END 2023-02-14 19:44 | disposition left against medical advice (07) | LOC: ERS 17:48 | DX: Z53.21 Procedure and treatment not carried out due to patient leaving prior to being seen by health care provider (principal) ==